=== PATIENT | female | born 2000 | race African-American/Black ===

== ENCOUNTER 2020-06-27 16:44 | Emergency (ER) | payer MEDICAID, OTHER ==
[~2020-06-27] VITALS: BP 125/70; Ht 165.1 cm; Wt 72.6 kg
[2020-06-27 16:47] VITALS: BP 125/67
--- NOTE | 2020-06-27 16:51 | NUR ---
PT TAKEN TO BED 11.
[2020-06-27 16:58] VITALS: BP 125/70
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
--- NOTE | 2020-06-27 17:03 | NUR ---
JOSE Roman at pt bedside.
--- NOTE | 2020-06-27 17:10 | NUR ---
Patient discharged with v/s stable. Written and verbal after care instructions given and explained. Patient verbalized understanding. Ambulatory with steady gait. All questions addressed prior to discharge. Advised to follow up with PMD.
== END 2020-06-27 17:09 | disposition home or self-care (01) ==
LOC: MED 16:44
DX: S01.01XD Laceration without foreign body of scalp, subsequent encounter (principal); Z48.00 Encounter for change or removal of nonsurgical wound dressing; X58.XXXD Exposure to other specified factors, subsequent encounter
CPT/HCPCS: 99281